=== PATIENT | male | born 1980 | race Caucasian/White ===

== ENCOUNTER 2020-05-11 17:26 | Emergency (ER) | payer OTHER, SELFPAY ==
[2020-05-11 17:51] VITALS: BP 154/93; PULSE 57; RESP 16; TEMP 37.1; O2SAT 99; BMI 29.7
--- NOTE | 2020-05-11 17:53 | DI.RAD.S_ITS ---
PROCEDURE: XR FINGER LT MIN 2V INDICATIONS: cat bite TECHNIQUE: AP hand, 2 views of the index finger(s) acquired. COMPARISON: None. FINDINGS: Bones: No fractures or dislocations. No suspicious bony lesions. Soft tissues: No suspicious soft tissue calcifications. IMPRESSION: Normal left index finger. Dictated by: Sigifredo Salcedo M.D. on 05/11/2020 at 18:09 Approved by: Sigifredo Salcedo M.D. on 05/11/2020 at 18:10
[2020-05-11] MEDS: AMOXICILLIN/CLAV 875/125 MG 1 TAB PO ×2 (18:15→18:40)
[2020-05-11] MEDS: TET,DIPH,PERTUSS(ACELL),VAC/PF 0.5 ML SYRINGE IM (18:16)
[2020-05-11] MEDS: BACITRACIN OINT 0.9 GM PCKT 1 APPLIC TOP (18:16)
--- NOTE | 2020-05-11 18:43 | ED_ITS ---
HPI - Wound/Laceration <LUIS EDUARDO [place] - Last Filed: 05/11/20 18:55> General Chief Complaint: Wound/Laceration Stated Complaint: Cat bite, left index Time Seen by Provider: 05/11/20 17:46 Source: patient Mode of arrival: Ambulatory Limitations: no limitations History of Present Illness HPI narrative: This is a 39-year-old male, smoker, who has past medical history significant for CAD and 3 cardiac stents presents to ED with chief complain of cat bite on left non dominant hand distal index finger yesterday. Patient noticed increase in swelling, throbbing discomfort, pus-like discharge from affected finger. Patient reports is able to move his finger and intact sensation. The cat is the patient's pet and believes has all the vaccination up to date. Patient denies fever, chills, nausea or vomiting. Last Tdap likely received about 7 years ago. Related Data Previous Rx's Medication Instructions Recorded amoxicillin-pot clavulanate 1 tab PO BID 9 Days #18 tab 05/11/20 [Augmentin] Allergies Allergy/AdvReac Type Severity Reaction Status Date / Time clopidogrel [From Plavix] Allergy Verified 05/11/20 18:10 prasugrel [From Effient] Allergy Verified 05/11/20 18:10 Review of Systems <LUIS EDUARDO [place] - Last Filed: 05/11/20 18:55> Review of Systems Narrative: General: Denies fever, chills, fatigue, malaise, sweats. Respiratory: Denies dyspnea, cough, wheezing, hemoptysis, sputum. Cardiovascular: Denies chest pain, palpitations, orthopnea, edema. Gastrointestinal: Denies nausea, vomiting, abdominal pain, diarrhea, constipation, melena. : Denies dysuria, frequency, incontinence, hematuria, urinary retention. Musculoskeletal: See HPI Skin: See HPI Patient History <LUIS EDUARDO [place] - Last Filed: 05/11/20 18:55> Medical History CAD (coronary artery disease) Surgical History History of heart artery stent Social History Smoking Status: Current every day smoker Smoking Status: Current every day smoker alcohol intake frequency: holidays/special occasions only Substance Use Type: does not use Exam <LUIS EDUARDO [place] - Last Filed: 05/11/20 18:55> Narrative Exam Narrative: General appearance: well developed, well nourished, in no acute distress. Head: normocephalic, atraumatic, no scalp lesions, non-tender. ENT: Hearing grossly intact. Airway patent. Neck/Thyroid: neck supple, full range of motion, no visible masses or meningeal signs. No JVD, non-tender without lymphadenopathy. Skin: Two tiny puncture wound in left distal index finger. Mild swelling, erythema. No obvious purulent discharge appreciated. Warm and dry and appr opriate color for ethnicity. Heart: no clubbing, no cyanosis, no edema. S1 and S2 normal. RRR w/o murmurs, clicks, or bruits. Lungs: Breathing even and unlabored. No stridor. No accessory muscles used. Able to speak in full sentences. Chest: normal shape and expansion. Abdomen: non-obese, non-distended. Neurologic: alert and oriented. Cognitive exam, [employer] and PNS grossly intact on informal exam. Psych: good eye contact, normal affect. Initial Vital Signs Initial Vital Signs: Vital Signs Temperature 98.7 F 05/11/20 17:51 Pulse Rate 57 L 05/11/20 17:51 Respiratory Rate 16 05/11/20 17:51 Blood Pressure 154/93 H 05/11/20 17:51 Pulse Oximetry 99 05/11/20 17:51 Extrem Left upper extremity: hand Details: normal capillary refill, neuromotor exam normal, neurosensory exam normal, tenderness, normal ROM of fingers, swelling (Mild) and puncture wound (two in distal index finger); no unusual warmth, no ecchymosis and no crepitus <Juanjose Gilbert DO - Last Filed: 05/11/20 23:07> Initial Vital Signs Initial Vital Signs: Vital Signs Temperature 98.7 F 05/11/20 17:51 Pulse Rate 57 L 05/11/20 17:51 Respiratory Rate 16 05/11/20 17:51 Blood Pressure 154/93 H 05/11/20 17:51 Pulse Oximetry 99 05/11/20 17:51 Scores <Jt Castorena [facility] - Last Filed: 05/11/20 18:55> GCS [place] coma scale eye opening: Spontaneous [place] coma scale verbal response: Orientated [place] coma scale motor response: Obey commands [place] coma scale total score: 15 qSOFA Altered Mental Status (GCS <15): No Respiratory rate greater than/equal to 22: No Systolic blood pressure less than or equal to 100: No qSOFA Total: 0 0-1 Not High Risk 1-3 High risk Course <Jt CastorenaLEIDYP - Last Filed: 05/11/20 18:55> Orders Ordered: ED Orders 05/11/20 17:53 XR finger LT min 2V Stat Discontinued Medications Amoxicillin/Clavulanate Potassium (Amoxicillin/Clav 875/125 Mg) 1 tab PO NOW ONE Stop: 05/11/20 17:54 Last Admin: 05/11/20 18:15 Dose: 1 tab Documented by: LAINE Amoxicillin/Clavulanate Potassium (Amoxicillin/Clav 875/125 Mg) 1 tab PO NOW ONE Stop: 05/11/20 18:35 Last Admin: 05/11/20 18:40 Dose: 1 tab Documented by: LAINE Bacitracin (Bacitracin Oint 0.9 Gm Pckt) 1 applic TOP NOW ONE Stop: 05/11/20 17:55 Last Admin: 05/11/20 18:16 Dose: 1 applic Documented by: LAINE Diphtheria/Tetanus/Acell Pertussis (Tet,Diph,Pertuss(Acell),Vac/Pf 0.5 Ml Syringe) 0.5 ml IM .ONCE ONE Stop: 05/11/20 17:54 Last Admin: 05/11/20 18:16 Dose: 0.5 ml Documented by: LAINE Vital Signs Vital signs: Vital Signs - 8 hr 05/11/20 17:51 Temperature 98.7 F Pulse Rate 57 L Respiratory Rate 16 Blood Pressure 154/93 H Pulse Oximetry 99 <Juanjose Gilbert DO - Last Filed: 05/11/20 23:07> Orders Ordered: ED Orders 05/11/20 17:53 XR finger LT min 2V Stat Discontinued Medications Amoxicillin/Clavulanate Potassium (Amoxicillin/Clav 875/125 Mg) 1 tab PO NOW ONE Stop: 05/11/20 17:54 Last Admin: 05/11/20 18:15 Dose: 1 tab Documented by: LAINE Amoxicillin/Clavulanate Potassium (Amoxicillin/Clav 875/125 Mg) 1 tab PO NOW ONE Stop: 05/11/20 18:35 Last Admin: 05/11/20 18:40 Dose: 1 tab Documented by: LAINE Bacitracin (Bacitracin Oint 0.9 Gm Pckt) 1 applic TOP NOW ONE Stop: 05/11/20 17:55 Last Admin: 05/11/20 18:16 Dose: 1 applic Documented by: LAINE Diphtheria/Tetanus/Acell Pertussis (Tet,Diph,Pertuss(Acell),Vac/Pf 0.5 Ml Syringe) 0.5 ml IM .ONCE ONE Stop: 05/11/20 17:54 Last Admin: 05/11/20 18:16 Dose: 0.5 ml Documented by: LAINE Vital Signs Vital signs: Vital Signs - 8 hr 05/11/20 17:51 Temperature 98.7 F Pulse Rate 57 L Respiratory Rate 16 Blood Pressure 154/93 H Pulse Oximetry 99 MDM - Wound/Laceration <LUIS EDUARDO [place] - Last Filed: 05/11/20 18:55> Differential Diagnosis Differential diagnosis: Likely other (Puncture wound, cat bite, foreign body, fracture) Medical Records Attestation: I reviewed the patient's medical records. Lab Data Attestation: I reviewed the patient's lab results. Imaging Data XR-Finger LT: Radiologist's Impression: [address] [id number] ReportSigned Patient: Eliceo Curtis WMR#: [id number]: [id number]:[id number]/Sex: 39 / MDate of Service: 05/11/20Loc: EDAccession Number: [id number] Procedure: XR finger LT min 2V Ordering Provider: Jt Castorena PROCEDURE: XR FINGER LT MIN 2V INDICATIONS: cat bite TECHNIQUE: AP hand, 2 views of the index finger(s) acquired. COMPARISON: None. FINDINGS: Bones: No fractures or dislocations. No suspicious bony lesions. Soft tissues: No suspicious soft tissue calcifications. IMPRESSION: Normal left index finger. Dictated by: Sigifredo Salcedo M.D. on 05/11/2020 at 18:09 Approved by: Sigifredo Salcedo M.D. on 05/11/2020 at 18:10 [facility] Narrative Medical decision making narrative: This is a 39-year-old male who presents to ED with the puncture wound from his own cat bite yesterday with chief complain of throbbing discomfort, mild swelling, pus-like discharge today. He has intact sensation and is able to flex and extend affected finger and Has a brisk cap refill. X-ray test does not show fractures or foreign bodies. Tdap immunization updated today. Wound care done on affected finger by soaking in Hibiclens and dressed with antibiotic ointment and Band-Aid. Patient was medicated with Augmentin 1st dose in ED and discharged to home with remaining b.i.d. course for 10 days to treat early animal bite infection. Return precautions were discussed with patient and he verbalized understanding in agreement treatment plan. Discharge Plan Departure Patient Disposition: Home Clinical Impression: Cat bite of index finger Qualifiers: Encounter type: initial encounter Qualified Code(s): S61.258A - Open bite of other finger without damage to nail, initial encounter Instructions: DI for Animal Bites, DI for Puncture Wound Activity Restrictions/Additional Instructions: You have been diagnosed with [2 puncture wound in left index distal finger from cat bite. X-ray test does not show foreign bodies or fractures. Wound was cleaned and dressed with antibiotic ointment. Tdap immunization updated today. You were started on Augmentin in ED.]. What to do: *Take your medications as directed. Please continue with Augmentin antibiotic medication twice a day for next 10 days. You can take [id number] Tylenol and or Motrin as needed for discomfort. Keep the wound dressed with antibiotic ointment. Medication have been transmitted to [facility] in [place]. *Follow up with your primary care provider in 2-3 days, call for an appointment. Let them know you were seen in the ED and that we asked you to be seen in follow up. *Return to ED if you have any new, worsening, or concerning symptoms, such as [worsening pain, redness, swelling, warmth, fever, purulent discharge, chest pain, breathing difficulty, unable to tolerate medications or any acute concerns]. Prescriptions: New amoxicillin-pot clavulanate [Augmentin] 875-125 mg tablet 1 tab PO BID 9 Days Qty: 18 RF: 0 <Juanjose Gilbert DO - Last Filed: 05/11/20 23:07> Cosign ED Attending Cosignature Attestation: I was immediately available in the department for consultation. This documentation has been reviewed and I agree with assessment and plan. Supervised by Juanjose Gilbert DO
== END 2020-05-11 18:49 | disposition home or self-care (01) ==
PROVIDERS: Emergency Provider Nurse Practitioner Family
DX: S61.258A Open bite of other finger without damage to nail, initial encounter (principal); W55.01XA Bitten by cat, initial encounter; Z23 Encounter for immunization; Z95.5 Presence of coronary angioplasty implant and graft; I25.10 Atherosclerotic heart disease of native coronary artery without angina pectoris
CPT/HCPCS: 73140; 90471; 99283; 90715